=== PATIENT | male | born 1935 | race African-American/Black ===

== ENCOUNTER 2018-03-02 10:36 | Outpatient (CLI) | payer MEDICARE ==
--- NOTE | 2018-03-02 12:09 | RAD ---
CHEST TWO VIEWS: HISTORY: Dyspnea. FINDINGS: The lungs appear clear. No infiltrate. No evidence of vascular congestion or edema. Heart size is normal. IMPRESSION: No acute lung process identified. POS: [facility]
== END 2018-03-02 10:37 | disposition home or self-care (01) ==
LOC: RAD 10:36
PROVIDERS: ATTEND Internal Medicine Critical Care Medicine
DX: R06.00 Dyspnea, unspecified (principal)
CPT/HCPCS: 71046

== ENCOUNTER 2020-11-10 13:36 | Observation (INO) | payer MEDICARE, OTHER ==
[~2020-11-10 13:36] MED LIST: Iopamidol-370 76% 500 ML 1 ML ONE
[2020-11-10 14:24] LABS: #Eosinphils 0.2 thou/uL (0.0-0.7); #Lymphocytes 1.6 thou/uL (1.20-3.40); #Monocytes 0.7 thou/uL (0.11-0.59); #Neutrophils 5.5 thou/uL (1.40-6.50); %Basophils 0.4 % (0.0-1.0); %Eosinophils 2.4 % (0.0-10.0); %Lymphocytes 20.4 % (21.0-51.0); %Monocytes 8.3 % (0.0-10.0); %Neutrophils 68.6 % (42.0-75.0); Hemoglobin 14.9 g/dL (14.0-18.0); Mean Corpuscular HGB CONC 31.2 g/dL (32.0-36.0); Mean Corpuscular Hemoglobin 28.5 pg (27.0-31.0); Mean Corpuscular Volume 91.3 fL (78.0-98.0); Mean Platelet Volume 7.1 fL (7.4-10.4); Platelet Count 339 thou/uL (130-400); RBC Distribution Width 11.7 % (11.5-14.5); Red Blood Cell (RBC) Count 5.25 mill/uL (4.70-6.10)
[2020-11-10 14:39] LABS: Prothrombin Time 13.6 sec (12.0-14.7)
[2020-11-10 14:40] LABS: PTT 31.5 sec (22.9-36.1)
[2020-11-10 14:48] LABS: ALT (SGPT) 11 U/L (8-55); AST (SGOT) 15 U/L (5-34); Albumin 4.3 g/dL (3.4-4.8); Alkaline Phosphatase 89 U/L (40-110); Anion Gap 17 mmol/L (10-20); BUN (Urea Nitrogen) 16 mg/dL (8.4-25.7); Bilirubin, Total 0.5 mg/dL (0.2-1.2); Calc. Creatinine Clearance 0 mL/min (70-130); Calcium 9.4 mg/dL (7.8-10.44); Carbon Dioxide 22 mmol/L (23-31); Chloride 105 mmol/L (98-107); Globulin 3.9 g/dL (2.4-3.5); Glucose 116 mg/dL (83-110); Magnesium 1.9 mg/dL (1.6-2.6); Potassium 3.5 mmol/L (3.5-5.1); Protein, Total 8.2 g/dL (5.8-8.1); Sodium 140 mmol/L (136-145)
--- NOTE | 2020-11-10 15:43 | CT ---
CTA CHEST WITH CONTRAST: Date: 11/10/2020 Axial tomograms obtained with multiplanar reconstruction and 3D postprocessing. INDICATION: Dyspnea. FINDINGS: Pulmonary arteries show adequate enhancement. No evidence of pulmonary embolus identified. Thoracic aorta unremarkable. Mediastinum shows nonspecific adenopathy. Moderate size right pleural effusion. Compressive atelectasis of right lower lobe. Mild atelectasis r ight middle lobe. Lungs otherwise clear. No mass or other evidence of infiltrate. Images through the upper abdomen unremarkable. IMPRESSION: 1. No evidence of pulmonary embolus. 2. Moderate size right pleural effusion with compressive atelectasis. POS: [facility]
[2020-11-10] MEDS ORDERED: HumaLOG 300 UNITS/3 ML VIAL SC PRN ×2 (18:20)
[2020-11-10] MEDS ORDERED: Dextrose 5% in Water 1,000 ML IV PRN (18:20)
[2020-11-10] MEDS ORDERED: Dextrose 50% Abboject 50 ML SYRINGE SLOW IVP PRN (18:20)
[2020-11-10] MEDS ORDERED: Acetaminophen 650 MG Suppository PR PRN (18:20)
[2020-11-10] MEDS ORDERED: Acetaminophen 325 MG TAB PO PRN (18:20)
--- NOTE | 2020-11-10 18:28 | PDOC.HHP ---
Hospitalist HPI MEEK History of Present Illness: Mr. Ramirez is an 85, with past medical history of hypertension, hyperlipidemia, GERD, prostate cancer who was sent in from Dr. Jacob's office for a pleural effusion. Patient reports worsening dyspnea on exertion over the past few weeks. He denies any history of pleural effusions, but does report a history of COPD on daily inhalers, not on home O2. Patient denies chest pain, numbness weakness or paresthesias. Denies lower extremity swelling or abdominal swelling. No history of kidney problems no alcohol use or liver problems. Patient does report a history of prostate cancer which was treated years ago. No known history of prior pleural effusions. In emergency room initial vital signs 130/76, 120, 19, 98.1, 95% on room air. Chest x-ray showed moderate sized right pleural effusion. CTA was negative for pulmonary embolism, but did show moderate pleural effusion. BNP 15.4, magnesium 1.9. EKG showed sinus tachycardia. Troponin 0 0.010. BUN/Cr 16/1.36, sodium 140, potassium 3.5, glucose 116. H/H 14.9/47.9, WBC 8.0, platelets 339. Allergies/Adverse Reactions: Allergy/AdvReac Type Severity Reaction Status Date / Time penicillin G Allergy Verified 11/10/20 18:28 Penicillins Allergy Verified 11/10/20 18:28 Past History: PMHx: Hypertension Hyperlipidemia GERD Prostate cancer PSHx: No past surgical history. FHx: Denies family history of cancer. Social: Denies tobacco, alcohol or drug use. Hospitalist HPI JUANA Constitutional: denies: fever, chills, sweats, weakness, malaise, other Eyes: denies: pain, vision change, conjunctivae inflammation, eyelid inflammation, redness, other ENT: denies: ear pain, ear discharge, nose pain, nose discharge, nose congestion, mouth pain, mouth swelling, throat pain, throat swelling, other Respiratory: reports: shortness of breath, SOB with excertion. denies: cough, dry, hemoptysis, pleuritic pain, sputum, wheezing, other Cardiovascular: denies: chest pain, palpitations, orthopnea, paroxysmal noc. dy spnea, edema, light headedness, other Gastrointestinal: denies: nausea, vomiting, abdominal pain, diarrhea, constipation, melena, hematochezia, other Genitourinary: denies: dysuria, frequency, incontinence, hematuria, retention, other Musculoskeletal: denies: neck pain, shoulder pain, arm pain, back pain, hand pain, leg pain, foot pain, other Skin: denies: rash, lesions, parris, bruising, other Neurological: denies: weakness, numbness, incoordination, change in speech, con fusion, seizures, other Hospitalist Exam General Appearance: NAD, awake alert Eye: PERRL, anicteric sclera ENT: normocephalic atraumatic, no oropharyngeal lesions, moist mucosa Neck: supple, symmetric, no JVD, no thyromegaly, no lymphadenopathy, no carotid bruit Heart: RRR, no murmur, no gallops, no rubs, normal peripheral pulses Respiratory: CTAB, no wheezes, no rales, no ronchi, normal chest expansion, no tachypnea, normal percussion Gastrointestinal: soft, non-tender, non-distended, normal bowel sounds, no palpable masses, no hepatomegaly, no splenomegaly, no bruit Extremities: no cyanosis, no clubbing, no edema Skin: normal turgor, no lesions, no rashes Neurological: cranial nerve grossly intact, normal sensation to touch, no weakness, no focal deficits, no new deficit Musculoskeletal: normal tone, normal strength, no muscle wasting Psychiatric: normal affect, normal behavior, A&O x 3 Hospitalist Results Result Diagrams: 11/10/20 14:02 11/10/20 14:02 Lab results: Laboratory Last Values WBC 8.0 thou/uL (4.8-10.8) 11/10/20 14:02 RBC 5.25 mill/uL (4.70-6.10) 11/10/20 14:02 Hgb 14.9 g/dL (14.0-18.0) 11/10/20 14:02 Hct 47.9 % (42.0-52.0) 11/10/20 14:02 MCV 91.3 fL (78.0-98.0) 11/10/20 14:02 MCH 28.5 pg (27.0-31.0) 11/10/20 14:02 MCHC 31.2 g/dL (32.0-36.0) L 11/10/20 14:02 RDW 11.7 % (11.5-14.5) 11/10/20 14:02 Plt Count 339 thou/uL (130-400) 11/10/20 14:02 MPV 7.1 fL (7.4-10.4) L 11/10/20 14:02 Neutrophils % 68.6 % (42.0-75.0) 11/10/20 14:02 Lymphocytes % 20.4 % (21.0-51.0) L 11/10/20 14:02 Monocytes % 8.3 % (0.0-10.0) 11/10/20 14:02 Eosinophils % 2.4 % (0.0-10.0) 11/10/20 14:02 Basophils % 0.4 % (0.0-1.0) 11/10/20 14:02 Neutrophils # 5.5 thou/uL (1.40-6.50) 11/10/20 14:02 Lymphocytes # 1.6 thou/uL (1.20-3.40) 11/10/20 14:02 Monocytes # 0.7 thou/uL (0.11-0.59) H 11/10/20 14:02 Eosinophils # 0.2 thou/uL (0.0-0.7) 11/10/20 14:02 Basophils # 0.0 thou/uL (0.0-0.2) 11/10/20 14:02 PT 13.6 sec (12.0-14.7) 11/10/20 14:02 INR 1.0 11/10/20 14:02 APTT 31.5 sec (22.9-36.1) 11/10/20 14:02 Sodium 140 mmol/L (136-145) 11/10/20 14:02 Potassium 3.5 mmol/L (3.5-5.1) 11/10/20 14:02 Chloride 105 mmol/L (98-107) 11/10/20 14:02 Carbon Dioxide 22 mmol/L (23-31) L 11/10/20 14:02 Anion Gap 17 mmol/L (10-20) 11/10/20 14:02 BUN 16 mg/dL (8.4-25.7) 11/10/20 14:02 Creatinine 1.36 mg/dL (0.7-1.3) H 11/10/20 14:02 Estimated GFR (MDRD) 60 11/10/20 14:02 Glucose 116 mg/dL (83-110) H 11/10/20 14:02 Calcium 9.4 mg/dL (7.8-10.44) 11/10/20 14:02 Magnesium 1.9 mg/dL (1.6-2.6) 11/10/20 14:02 Total Bilirubin 0.5 mg/dL (0.2-1.2) 11/10/20 14:02 AST 15 U/L (5-34) 11/10/20 14:02 ALT 11 U/L (8-55) 11/10/20 14:02 Alkaline Phosphatase 89 U/L (40-110) 11/10/20 14:02 Troponin I Less than 0.010 ng/mL (< 0.028) 11/10/20 14:02 B-Natriuretic Peptide 15.4 pg/mL (0-100) 11/10/20 14:02 Serum Total Protein 8.2 g/dL (5.8-8.1) H 11/10/20 14:02 Albumin 4.3 g/dL (3.4-4.8) 11/10/20 14:02 Globulin 3.9 g/dL (2.4-3.5) H 11/10/20 14:02 Albumin/Globulin Ratio 1.1 g/dL (1.2-2.2) L 11/10/20 14:02 Hospitalist H&P A/P Plan: Pleural effusion 85-year-old male with possible history of prostate cancer, hyperlipidemia hype rtension GERD presents with right-sided pleural effusion worsening shortness of breath the past few weeks. Sent in from Dr. Jacob's office. Patient with no O2 requirement, currently saturating 95% on room air. Troponin 0 0.010. BNP 15.4. No JVD. Patient does not appear fluid overloaded. CTA negative for pulmonary embolism, but did show moderate right-sided pleural effusion with compressive atelectasis. Will consult pulmonology, recommendations appreciated. Plan Lasix 20 mg IV Supplemental oxygen as needed Pulmonology consult Hypertension History of hypertension will confirm home medications and continue. Hyperlipidemia We will continue home statin GERD Continue home pantoprazole DVT prophylaxisSCDs Full code Case discussed with attending physician.
[2020-11-10 18:34] LABS: Troponin I Less than 0.010 ng/mL (< 0.028)
[2020-11-10] MEDS ORDERED: Furosemide 20 MG/2 ML VIAL SLOW IVP SCH (19:00)
--- NOTE | 2020-11-10 19:48 | OP ---
DATE OF PROCEDURE: 11/10/2020 PROCEDURE PERFORMED: Right thoracentesis. PREOPERATIVE DIAGNOSIS: Right pleural effusion. POSTOPERATIVE DIAGNOSIS: Right pleural effusion. ANESTHESIA: 1% lidocaine without epinephrine. DESCRIPTION OF PROCEDURE: For the procedure, informed consent was obtained from the patient explaining the procedure and risks involved including bleeding, infection, and external lung puncture. The patient agreed to proceed. The patient was placed in the sitting position. The right posterior hemothorax was scrubbed with chlorhexidine and draped sterilely. At approximately 5th and 6th interspace in the mid scapular line, the local anesthetic was applied. A [id number] catheter was inserted in the pleural space and approximately 1.2 L of dark luis antonio colored pleural fluid was removed and sent for appropriate studies. He tolerated the procedure well. Job ID: [id number]
[2020-11-10 20:25] LABS: RBC Count-Automated (BF) 13158 /cu.mm; WBC/Nucleated-Auto (BF) 1884 uL
[2020-11-10 20:27] LABS: BF Color Pink; Body Fluid Source Pleural Fluid; Clarity Cloudy/Turbid (Clear); Tube # EDTA
[2020-11-10 20:38] LABS: BF Segmented Neutrophils 8 %; Cell Count Non Hematic 32 %; Eosinophils 17 %; Lymphocytes 41 %
[2020-11-10] MEDS ORDERED: Furosemide 20 MG/2 ML VIAL ONE (20:48)
[2020-11-10 20:51] LABS: Pleural Fluid, Protein 5.1 g/dL
--- NOTE | 2020-11-10 21:08 | CON ---
DATE OF CONSULTATION: 11/10/2020 REASON FOR CONSULTATION: Right pleural effusion. HISTORY OF PRESENT ILLNESS: Mr. Ramirez is an 85-year-old male who presented to my office earlier in the day [facility] I had not seen him in 2 years. His x-ray showed a fairly sizable right pleural effusion. However, this was complicated by the fact the patient had in the regular heart rate of about 140 in the office. I had no monitoring equipment in the office, send him to the ER for further evaluation. He was put on a heart monitor. He was given some IV fluids and his heart rate gradually dissipated to about 114 and he was in sinus rhythm. BMP showed no elevation to suggest congestive heart failure. He had a CT pulmonary angiogram, which showed only pleural effusion. No pulmonary embolism. I did perform a thoracentesis in the ER later revealing about 1.2 L of luis antonio colored pleural fluid. PAST MEDICAL HISTORY: Hypertension, hyperlipidemia, gastroesophageal reflux, prostate cancer. PAST SURGICAL HISTORY: Essentially negative. FAMILY MEDICAL HISTORY: Unremarkable. SOCIAL HISTORY: Nonsmoker. Does not consume alcohol. 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 He also served in the [employer] between the [employer] and the War. REVIEW OF SYSTEMS: Remarkable for some pain on his right side, shortness of breath with exertion. No fever, chills, nausea, vomiting, hematemesis, hematochezia, hematuria or dysuria. PHYSICAL EXAMINATION: VITAL SIGNS: Heart rate 114, blood pressure 130/74, respiratory rate 20, O2 saturation in the high 90s. GENERAL: He is awake, alert, and in no acute distress. HEENT: Unremarkable. NECK: No adenopathy or JVD. LUNGS: Diminished breath sounds in the right base. Dullness to percussion there. CARDIOVASCULAR: S1, S2, irregular. Slightly tachycardic. ABDOMEN: Soft and nontender to palpation. EXTREMITIES: No clubbing, cyanosis, or edema. LABORATORY DATA: White blood cell count 8, hematocrit 47.9, and platelet count 339. INR 1.0. Sodium 140, potassium 3.5, chloride 105, CO2 of 22, BUN 16, creatinine 1.4, glucose 116. BNP 15.4. ASSESSMENT: Moderate-size right pleural effusion of unknown etiology. Differential diagnosis would be transudative versus malignancy related versus benign asbestos pleural effusion versus infection. PLAN: Diagnostic therapeutic right thoracentesis. This was performed in the ER and specimens were sent for routine studies. He tolerated procedure well. Further disposition to follow up based on full results. Job ID: [id number]
[2020-11-10 21:39] LABS: Troponin I Less than 0.010 ng/mL (< 0.028)
[2020-11-11 01:42] VITALS: BMI 26.6
[2020-11-11 04:13] LABS: SARS-CoV-2 PCR by NAA Not Detected (NotDetected)
[2020-11-11 05:04] LABS: #Eosinphils 0.2 thou/uL (0.0-0.7); #Monocytes 0.8 thou/uL (0.11-0.59); #Neutrophils 4.8 thou/uL (1.40-6.50); %Basophils 0.4 % (0.0-1.0); %Eosinophils 2.8 % (0.0-10.0); %Lymphocytes 25.9 % (21.0-51.0); %Monocytes 9.5 % (0.0-10.0); %Neutrophils 61.4 % (42.0-75.0); Hemoglobin 14.3 g/dL (14.0-18.0); Mean Corpuscular HGB CONC 32.2 g/dL (32.0-36.0); Mean Corpuscular Hemoglobin 29.3 pg (27.0-31.0); Mean Platelet Volume 7.4 fL (7.4-10.4); Platelet Count 269 thou/uL (130-400); RBC Distribution Width 11.6 % (11.5-14.5); Red Blood Cell (RBC) Count 4.88 mill/uL (4.70-6.10); White Blood Cell (WBC) Count 7.9 thou/uL (4.8-10.8)
[2020-11-11 05:24] LABS: Anion Gap 16 mmol/L (10-20); BUN (Urea Nitrogen) 14 mg/dL (8.4-25.7); Calc. Creatinine Clearance 60 mL/min (70-130); Calcium 8.9 mg/dL (7.8-10.44); Carbon Dioxide 19 mmol/L (23-31); Chloride 107 mmol/L (98-107); Glucose 103 mg/dL (83-110); Potassium 3.7 mmol/L (3.5-5.1); Sodium 138 mmol/L (136-145)
--- NOTE | 2020-11-11 10:18 | PRG ---
DATE OF SERVICE: 11/11/2020 SUBJECTIVE: He feels much better today. He is having less chest pain. His O2 sats improved to 100% on room air. OBJECTIVE: VITAL SIGNS: Temperature 98.5, pulse 97, respirations 14, blood pressure 139/71. HEENT: Unremarkable. NECK: No adenopathy or JVD. LUNGS: Clear anteriorly. CARDIAC: S1, S2. Regular. ABDOMEN: Soft. EXTREMITIES: No clubbing, cyanosis, edema. LABORATORY DATA: White blood cell count 7.9, hematocrit 44.4, platelet count 269. Sodium 138, potassium 3.7, chloride 107, CO2 of 19, BUN 14, creatinine 1.1, glucose 103. His pleural fluid showed elevated white cells and red cells, elevated lymphocytes and eosinophils. Cytology is pending and will probably take a day or two to come back. ASSESSMENT: Pleural effusion-exudative with lymphocytic predominance. PLAN: The patient is okay to go home. I will call him with the final cytology when it comes back. The preliminary numbers are suspicious for malignancy. I will establish followup once I know the results of the pleural fluid cytology. Job ID: [id number]
[2020-11-11] MEDS ORDERED: Non-Formulary Item 1 EACH (Loratadine [Claritin] 10 MG Capsule) PO PRN (10:30)
[2020-11-11] MEDS ORDERED: Loratadine 10 MG TAB PO PRN (10:45)
[2020-11-11 12:29] VITALS: BP 157/73; TEMP 98.4
[2020-11-11] MEDS ORDERED: FLU VACC QS2020-21(65YR UP)/PF 240 MCG/0.7 ML SYRINGE IM ONE (21:00)
--- NOTE | 2020-11-12 07:57 | DIS ---
DATE OF ADMISSION: 11/10/2020 DATE OF DISCHARGE: 11/11/2020 DISCHARGE DIAGNOSES: 1. Right-sided pleural effusion, status post thoracentesis with outpatient followup with Pulmonary Services. 2. Benign essential hypertension. 3. Hyperlipidemia. 4. Gastroesophageal reflux disease. MEDICATIONS ON DISCHARGE: 1. Atorvastatin 40 mg daily. 2. Lasix 20 mg daily. 3. Omeprazole 20 mg daily. 4. Loratadine 10 mg daily. PHYSICAL EXAMINATION: VITAL SIGNS: Has a temperature of 98.5 degrees Fahrenheit, heart rate of 97 per minute, respiratory rate of 14 per minute, saturation of 100% on room air, and has a blood pressure of 139/71 mmHg. CVS: S1 and S2. CHEST: Bilateral air entry present. No rhonchi. No wheeze. ABDOMEN: Soft, nontender. Bowel sounds are present. No organomegaly. EXTREMITIES: No cyanosis. No edema. NEUROLOGIC: The patient is alert, oriented x3. No focal motor or sensory deficits noted. DIET: Heart-healthy diet. ACTIVITY: As tolerated. Fall precautions. DME needs, none. CONSULTATIONS ON THE CASE: Dr. Sean Jacob, Pulmonary/Critical Care. HOSPITAL COURSE: This is a very pleasant 85-year-old male gentleman with past medical history of benign essential hypertension, hyperlipidemia, GERD, prostate cancer, who was sent over from Dr. Sean Jacob, Pulmonary office for complaints of shortness of breath, which was further evaluated and pulmonary embolism was ruled out with CTA of the chest. The patient was found to have moderate left-sided pleural effusion, where he received thoracenteses eventually. The patient tolerated the procedure very well. Did fairly good after the procedure and was comfortably able to ambulate. He has been advised about continuation of home medications without any new changes. The patient has been advised for outpatient followup with Dr. Sean [facility]. All questions and concerns were addressed. The patient was hemodynamically optimized on discharge. DISPOSITION: Discharged home. DISCHARGE PLAN: The patient has been advised and educated about the diagnosis, treatment, and followup. The patient has been advised about followup care with Pulmonary/Critical Care. Advised about diagnostic evaluations. All questions and concerns were addressed. The patient was hemodynamically optimized on discharge. The whole discharge process including discharge coordination took me more than 35 minutes. Job ID: [id number]
[2020-11-12] MEDS ORDERED: Potassium Chloride 10 MEQ TAB PO SCH (09:00)
[2020-11-12] MEDS ORDERED: Atorvastatin Calcium 40 MG TAB PO SCH (09:00)
[2020-11-12] MEDS ORDERED: Non-Formulary Item 1 EACH (Potassium Chloride [Potassium Chloride] 10 MEQ Capsule.Er) PO SCH (09:00)
[2020-11-12] MEDS ORDERED: Furosemide 20 MG TAB PO SCH (09:00)
[2020-11-12] MEDS ORDERED: Non-Formulary Item 1 EACH (Omeprazole [Omeprazole] 20 MG Capsule.Dr) PO SCH (09:00)
== END 2020-11-11 15:45 | disposition home or self-care (01) ==
LOC: ERS 13:36 → ERHOLD 17:18 → 2NO 23:10
PROVIDERS: ADMIT Internal Medicine; ATTEND Student in an Organized Health Care Education/Training Program
PROC: 0BJQ3ZZ Inspection of Pleura, Percutaneous Approach (ICD-10-PCS; principal; 2020-11-10)
DX: J90 Pleural effusion, not elsewhere classified (principal); E78.00 Pure hypercholesterolemia, unspecified; E78.5 Hyperlipidemia, unspecified; I10 Essential (primary) hypertension; K21.9 Gastro-esophageal reflux disease without esophagitis; Z79.899 Other long term (current) drug therapy; Z88.0 Allergy status to penicillin; Z20.822 Contact with and (suspected) exposure to COVID-19; R60.0 Localized edema
CPT/HCPCS: 32554; 71046; 71275; 80048; 80053; 82150; 82945; 82962; 83615; 83735; 83880; 83986; 84157; 84478; 84484 ×2; 85025 ×2; 85610; 85730; 87040; 87070 ×2; 87116; 87205 ×2; 87206 ×2; 88112; 88305; 88341; 88342; 89051; 93005; 94760; U0003; U0005; 36415; 36416; 85060; 87635; 96374; G0378; J1642; J1940; Q9967

== ENCOUNTER 2020-12-01 12:28 | Outpatient (CLI) | payer MEDICARE ==
--- NOTE | 2020-12-01 13:08 | RAD ---
TWO VIEW CHEST: HISTORY: Dyspnea. COMPARISON: 11/10/2020. FINDINGS: Right pleural effusion again noted. There may be some peripheral loculation. Fluid appears to extend up the chest wall laterally on the right. Mild right basilar atelectasis. Lung david are otherwise clear and unchanged. Heart and mediastinum unremarkable. IMPRESSION: Right side effusion with questioned loculation. POS: [facility]
== END 2020-12-01 12:29 | disposition home or self-care (01) ==
LOC: BICRAD 12:28
PROVIDERS: ATTEND Internal Medicine Critical Care Medicine
DX: R06.00 Dyspnea, unspecified (principal); J90 Pleural effusion, not elsewhere classified
CPT/HCPCS: 71046

== ENCOUNTER 2021-01-15 11:53 | Outpatient (CLI) | payer MEDICARE | END 2021-01-15 11:54 | disposition home or self-care (01) | LOC: BICRAD 11:53 | PROVIDERS: ATTEND Internal Medicine Critical Care Medicine | DX: R06.00 Dyspnea, unspecified (principal) | CPT/HCPCS: 71046 ==

== ENCOUNTER 2021-04-07 14:03 | Emergency (ER) | payer MEDICARE ==
[2021-04-07 15:28] LABS: #Eosinphils 0.3 thou/uL (0.0-0.7); #Monocytes 1.6 thou/uL (0.11-0.59); #Neutrophils 10.5 thou/uL (1.40-6.50); %Basophils 0.2 % (0.0-1.0); %Eosinophils 1.8 % (0.0-10.0); %Lymphocytes 13.8 % (21.0-51.0); %Neutrophils 73.2 % (42.0-75.0); Hemoglobin 9.2 g/dL (14.0-18.0); Mean Corpuscular Hemoglobin 22.7 pg (27.0-31.0); Mean Corpuscular Volume 78.2 fL (78.0-98.0); Mean Platelet Volume 6.9 fL (7.4-10.4); Platelet Count 591 thou/uL (130-400); Red Blood Cell (RBC) Count 4.04 mill/uL (4.70-6.10); White Blood Cell (WBC) Count 14.4 thou/uL (4.8-10.8)
[2021-04-07 15:36] LABS: INR-International Normal Ratio 1.3; Prothrombin Time 16.2 sec (12.0-14.7)
[2021-04-07 15:37] LABS: PTT 34.3 sec (22.9-36.1)
[2021-04-07 15:41] LABS: ALT (SGPT) 19 U/L (8-55); AST (SGOT) 20 U/L (5-34); Albumin 3.4 g/dL (3.4-4.8); Alkaline Phosphatase 93 U/L (40-110); Anion Gap 20 mmol/L (10-20); BUN (Urea Nitrogen) 14 mg/dL (8.4-25.7); Bilirubin, Total 0.4 mg/dL (0.2-1.2); Calc. Creatinine Clearance 0 mL/min (70-130); Calcium 9.8 mg/dL (7.8-10.44); Carbon Dioxide 20 mmol/L (23-31); Chloride 101 mmol/L (98-107); Globulin 5.1 g/dL (2.4-3.5); Glucose 109 mg/dL (83-110); Potassium 4.6 mmol/L (3.5-5.1); Protein, Total 8.5 g/dL (5.8-8.1); Sodium 136 mmol/L (136-145)
[2021-04-07 15:49] LABS: Hypochromia SLIGHT = 6-15 cells (100X) (0-5/hpf); MDiff Complete? YES; Platelet Morphology Comment Appears Increased; Polychromasia SLIGHT = 2-3 cells (100X) (0-2/hpf); Target Cells SLIGHT = 2-5 cells (100X) (0-1/hpf)
[2021-04-07 16:21] LABS: Bacteria/HPF None Seen HPF (None Seen); Bilirubin Negative (Negative); Blood, Urine Negative (Negative); Clarity Clear (Clear); Glucose, Urine (Dipstick) Normal (Negative); Ketone, Urine Negative (Negative); Leukocyte 25 Leu/uL (Negative); Nitrite Negative (Negative); Protein, Urine (Dipstick) 50 mg/dL (Neg-Trace); RBC/HPF 0-3 HPF (0-3); Specific Gravity, Urine 1.031 (1.002-1.036); Squamous Epithelial 0-3 HPF (0-3); pH, Urine 5.5 (5.0-9.0)
[2021-04-07] MEDS ORDERED: cefTRIAXone\\ROCEPHIN 2 GM VIAL ONE (16:27)
== END 2021-04-07 18:45 | disposition home or self-care (01) ==
LOC: ERS 14:03
DX: J44.9 Chronic obstructive pulmonary disease, unspecified (principal); R00.0 Tachycardia, unspecified; I10 Essential (primary) hypertension; E78.00 Pure hypercholesterolemia, unspecified; K21.9 Gastro-esophageal reflux disease without esophagitis; Z79.899 Other long term (current) drug therapy
CPT/HCPCS: 36415; 71045; 71046; 71275; 80053; 81003; 81015; 83605; 83735; 84443; 84484; 85025; 85379; 85610; 85730; 87040; 87086; 93005; 94760; 96365; J0696; Q9967

== ENCOUNTER 2021-05-18 10:38 | Outpatient (CLI) | payer MEDICARE | END 2021-05-18 10:39 | disposition home or self-care (01) | LOC: BICRAD 10:38 | PROVIDERS: ATTEND Internal Medicine Critical Care Medicine | DX: R06.00 Dyspnea, unspecified (principal); J90 Pleural effusion, not elsewhere classified | CPT/HCPCS: 71046 ==